=== PATIENT | female | born 1995 | race Caucasian/White ===

== ENCOUNTER 2017-01-12 15:30 | Inpatient (IN) | payer MEDICAID ==
[2017-01-12] MEDS ORDERED: Butorphanol 1 MG/ML SDV ONE (15:45)
[2017-01-12] MEDS: Butorphanol 1 MG/ML SDV IVPUSH PRN ×2 (15:51→17:59)
[2017-01-12] MEDS: Lactated Ringers 1,000 ML IV SCH ×6 (15:51→23:32)
[2017-01-12] MEDS ORDERED: Sodium Chloride 0.9% 2.5 ML Syringe FLUSH PRN (16:18)
[2017-01-12] MEDS ORDERED: Sodium Chloride 0.9% 10 ML Syringe FLUSH PRN (16:18)
[2017-01-12] MEDS ORDERED: Misoprostol 200 MCG Tab PO PRN (16:22)
[2017-01-12] MEDS ORDERED: Lidocaine 1% 50 ML MDV INJECT PRN (16:22)
[2017-01-12] MEDS ORDERED: Water For Irrigation,Sterile 1,000 ML Container IRR PRN (16:22)
[2017-01-12] MEDS ORDERED: Methylergonovine 0.2 MG/1 ML Amp IM PRN (16:22)
[2017-01-12] MEDS ORDERED: Ampicillin 2 GM in Sodium Chloride 0.9% 100 ML IV ONE (16:22)
[2017-01-12] MEDS ORDERED: Nalbuphine 10 MG/1 ML Vial IVPUSH PRN (16:22)
[2017-01-12] MEDS ORDERED: Carboprost Tromethamine 250 MCG/1 ML Amp IM PRN (16:22)
[2017-01-12] MEDS ORDERED: Oxytocin/Lactated Ringers 30 UNIT/500 ML BAG IV SCH (16:30)
[2017-01-12] MEDS ORDERED: fentaNYL 100 MCG/2 ML SDV ONE (20:00)
[2017-01-12] MEDS ORDERED: Ropivacaine HCl/PF 100 ML ONE (20:00)
--- NOTE | 2017-01-12 20:42 | PCM.PREANE ---
Preanesthetic Assessment - Anesthesia/Transfusion/Family Hx Anesthesia History: Prior Anesthesia Without Reaction (SAB for ) Family History of Anesthesia Reaction: Other (see below) (Mother has PONV) Transfusion History: No Prior Transfusion(s) Intubation History: Unknown - Review of Systems General: No Symptoms Pulmonary: No Symptoms Cardiovascular: No Symptoms Gastrointestinal: No symptoms Neurological: No Symptoms Other: Reports: Anxiety - Physical Assessment NPO Status Date: 01/12/17 NPO Status Time: 20:39 (sips/chips) Height: 5 ft 4 in Weight: 196 lb ASA Class: 2 Mental Status: Alert & Oriented x3 Airway Class: Mallampati = 2 Dentition: Reports: Normal Dentition Thyro-Mental Finger Breadths: 3 Mouth Opening Finger Breadths: 3 ROM/Head Extension: Full Lungs: Clear to auscultation, Normal respiratory effort Cardiovascular: Regular Rate, Regular Rhythm - Lab Values: Laboratory Last Values WBC 13.11 K/uL (4.0-11.0) H 01/12/17 16:36 RBC 4.18 M/uL (4.30-5.90) L 01/12/17 16:36 Hgb 13.2 g/dL (12.0-16.0) 01/12/17 16:36 Hct 38.4 % (36.0-46.0) 01/12/17 16:36 MCV 91.9 fL (80.0-98.0) 01/12/17 16:36 MCH 31.6 pg (27.0-32.0) 01/12/17 16:36 MCHC 34.4 g/dL (31.0-37.0) 01/12/17 16:36 RDW Std Deviation 48.0 fl (28.0-62.0) 01/12/17 16:36 RDW Coeff of Sanjay 14 % (11.0-15.0) 01/12/17 16:36 Plt Count 182 K/uL (150-400) 01/12/17 16:36 MPV 10.10 fL (7.40-12.00) 01/12/17 16:36 Nucleated RBC % 0.0 /100WBC 01/12/17 16:36 Nucleated RBCs # 0 K/uL 01/12/17 16:36 Blood Type O POSITIVE 01/12/17 16:36 Antibody Screen NEGATIVE 01/12/17 16:36 - Allergies Allergies/Adverse Reactions: Allergies Allergy/AdvReac Type Severity Reaction Status Date / Time hydrocortisone Allergy Rash Verified 01/12/17 11:14 - Blood Blood Available: No Product(s) Available: None - Anesthesia Plan Free Text/Narrative:: Labor Epidural and in house for - Acknowledgements Anesthesia Type Planned: Epidural Pt an Appropriate Candidate for the Planned Anesthesia: Yes Alternatives and Risks of Anesthesia Discussed w Pt/Guardian: Yes Pt/Guardian Understands and Agrees with Anesthesia Plan: Yes PreAnesthesia Questionnaire [employer] History: Reports: , Other (See Below) (First d/t herpes outbreak) Psychiatric History: Reports: Anxiety, Depression - Infectious Disease History Infectious Disease History: Reports: Herpes - Past Surgical History Female Surgical History: Reports: Section - HOME MEDS Home Medications: Home Meds Ascorbate Calcium [Vitamin C] 1 tab PO DAILY 01/12/17 [History] Iron Tab 1 tab PO DAILY 01/12/17 [History] Vit W-Ca,Fe,FA(<1 mg) [ Vitamins] 1 tab PO DAILY 01/12/17 [ History] buPROPion [Wellbutrin XL] 150 mg PO DAILY 01/12/17 [History] valACYclovir HCl [Valtrex] 1 tab PO BID 01/12/17 [History] - CURRENT (IN HOUSE) MEDS Current Meds: Current Medications Butorphanol Tartrate (Stadol) 1 mg IVPUSH Q1H PRN PRN Reason: Pain Last Admin: 01/12/17 17:59 Dose: 1 mg Carboprost Tromethamine (Hemabate Ds) 250 mcg IM ASDIRECTED PRN PRN Reason: Post Hemorrhage Lactated Ringer's (Ringers, Lactated) 1,000 mls @ 500 mls/hr IV .BOLUS [facility] Last Infusion: 01/12/17 16:51 Dose: Infused Lactated Ringer's (Ringers, Lactated) 1,000 mls @ 150 mls/hr IV ASDIRECTED RODOLFO Last Admin: 01/12/17 20:13 Dose: 999 mls/hr Ampicillin Sodium 1 gm/ Sodium (Chloride) 50 mls @ 100 mls/hr IV Q4H RODOLFO Lidocaine HCl (Xylocaine 1%) 50 ml INJECT .ONCE PRN PRN Reason: Laceration repair Methylergonovine Maleate (Methergine) 0.2 mg IM ASDIRECTED PRN PRN Reason: Post Hemorrhage Misoprostol (Cytotec) 200 mcg PO .ONCE PRN PRN Reason: Post Hemorrhage Sodium Chloride (Saline Flush) 10 ml FLUSH ASDIRECTED PRN PRN Reason: Keep Vein Open Sodium Chloride (Saline Flush) 2.5 ml FLUSH ASDIRECTED PRN PRN Reason: Keep Vein Open Sterile Water (Sterile Water For Irrigation) 1,000 ml IRR ASDIRECTED PRN PRN Reason: delivery Discontinued Medications Butorphanol Tartrate (Stadol) Confirm Administered Dose 1 mg .ROUTE .STK-MED ONE Stop: 01/12/17 15:46 Fentanyl (Sublimaze) Confirm Administered Dose 100 mcg .ROUTE .STK-MED ONE Stop: 01/12/17 20:01 Ampicillin Sodium 2 gm/ Sodium (Chloride) 100 mls @ 200 mls/hr IV ONETIME ONE Stop: 01/12/17 16:51 Last Admin: 01/12/17 16:50 Dose: 200 mls/hr Oxytocin/Lactated Ringer's (Pitocin In Lr 30 Units/500 Ml) 30 unit in 500 mls @ 250 mls/hr IV TITRATE RODOLFO PRN Reason: 250 MUNITS/MIN Stop: 01/12/17 18:29 Ropivacaine (Naropin 0.2%) Confirm Administered Dose 100 mls @ as directed .ROUTE .STK-MED ONE Stop: 01/12/17 20:01 Nalbuphine HCl (Nubain) 10 mg IVPUSH Q1H PRN PRN Reason: Pain (severe 7-10) Stop: 01/12/17 18:23
[2017-01-12] MEDS: Ampicillin 1 GM in Sodium Chloride 0.9% 50 ML IV SCH (21:06)
[2017-01-13] MEDS: Ampicillin 1 GM in Sodium Chloride 0.9% 50 ML IV SCH (00:48)
[2017-01-13] MEDS ORDERED: fentaNYL 100 MCG/2 ML SDV ONE ×2 (02:56→03:24)
[2017-01-13] MEDS ORDERED: Bupivacaine 0.5% 10 ML SDV ONE (02:57)
[2017-01-13] MEDS ORDERED: ceFAZolin 2 GM in Premix Bag 1 BAG IV ONE (03:00)
[2017-01-13] MEDS ORDERED: Citric Acid/Sodium Citrate Solution 30 ML Cup PO SCH (03:00)
[2017-01-13] MEDS ORDERED: Sodium Chloride 0.9% 2.5 ML Syringe FLUSH PRN (03:00)
[2017-01-13] MEDS ORDERED: Sodium Chloride 0.9% 10 ML Syringe FLUSH PRN (03:00)
[2017-01-13] MEDS: Lactated Ringers 1,000 ML IV SCH (03:03)
[2017-01-13] MEDS ORDERED: Oxytocin 10 Units/1 ML SDV ONE ×2 (03:13→04:12)
[2017-01-13] MEDS ORDERED: Propofol 200 MG/20 ML SDV ONE (03:33)
[2017-01-13] MEDS ORDERED: Morphine PF 10 MG/10 ML SDV ONE (03:41)
[2017-01-13] MEDS ORDERED: Midazolam 1 MG/ML 2 ML SDV ONE (03:47)
[2017-01-13] MEDS ORDERED: Acetaminophen/oxyCODONE 325-5 MG Tab PO PRN (03:58)
[2017-01-13] MEDS ORDERED: Nalbuphine 10 MG/1 ML Vial IVPUSH PRN (03:59)
[2017-01-13] MEDS ORDERED: Naloxone 0.4 MG/ML Syringe IVPUSH PRN (03:59)
[2017-01-13] MEDS ORDERED: Meperidine PF 25 MG/ML Syringe ONE (04:02)
[2017-01-13] MEDS ORDERED: Ondansetron 4 MG/2 ML SDV ONE (04:04)
[2017-01-13] MEDS ORDERED: Octyl 2-Cyanoacrylate 1 Tube ONE ×2 (04:09→04:14)
[2017-01-13] MEDS ORDERED: Lanolin 100% Cream 7 GM Tube TOP PRN (04:19)
[2017-01-13] MEDS ORDERED: Ibuprofen 800 MG Tab PO PRN (04:19)
[2017-01-13] MEDS ORDERED: diphenhydrAMINE 50 MG/ML SDV IVPUSH PRN (04:19)
[2017-01-13] MEDS ORDERED: Simethicone 80 MG Tab.Chew PO PRN (04:19)
[2017-01-13] MEDS ORDERED: Bisacodyl 10 MG Supp RECTAL PRN (04:19)
[2017-01-13] MEDS ORDERED: Ondansetron 4 MG/2 ML SDV IVPUSH PRN (04:19)
[2017-01-13] MEDS ORDERED: Lactated Ringers 1,000 ML IV SCH (04:30)
--- NOTE | 2017-01-13 04:31 | PCM.OPNOTE ---
- General Post-Op/Procedure Note Date of Surgery/Procedure: 01/13/17 Operative Procedure(s): Repeat LTCS. Adhesiolysis Findings: Viable male APGARs 8, 9 weight 3250 gm. Intact placenta with 3 V cord. Dense anterior abominal wall/uterine adhesions. No IUD found with exploration of uterus/abdomen/pelvis Pre Op Diagnosis: 40/1 week IUP. TOLAC. Arrest of dilation Post-Op Diagnosis: Same Anesthesia Technique: Epidural Primary Surgeon: Izabela Roy Fluid Replacement, Intraop: 2,000 EBL in mLs: 500 Condition: Good Free Text/Narrative:: Dictation [id number]
[2017-01-13] MEDS: Ketorolac 30 MG/ML SDV IVPUSH SCH ×4 (04:42→22:29)
--- NOTE | 2017-01-13 04:53 | PCM.POSTAN ---
POST ANESTHESIA ASSESSMENT - MENTAL STATUS Mental Status: alert, oriented - VITAL SIGNS Pulse Rate: 89 SaO2: 99 Resp Rate: 12 Blood Pressure: 124/64 - RESPIRATORY Respiratory Status: respiratory rate WNL, airway patent, O2 saturation stable - CARDIOVASCULAR CV Status: pulse rate WNL, blood pressure stable - GASTROINTESTINAL GI Status: no symptoms - PAIN Pain Score: 0 - POST OP HYDRATION Hydration Status: adequate & stable - OBSERVATIONS Free Text/Narrative:: Pt doing well post . Anxiety has relieved now that pt is out of the OR. VSS. No nausea or pain at this time.
--- NOTE | 2017-01-13 05:54 | OR ---
SURGEON: Izabela Roy M.D. DATE OF PROCEDURE: 01/13/2017 PREOPERATIVE DIAGNOSES: 1. A 40 and 1 week intrauterine . 2. Previous low transverse section, desires trial of labor after . 3. Arrest of dilation. POSTOPERATIVE DIAGNOSES: 1. A 40 and 1 week intrauterine . 2. Previous low transverse section, desires trial of labor after . 3. Arrest of dilation. PROCEDURES: 1. Repeat low transverse section. 2. Adhesiolysis. ANESTHESIA: Epidural. ESTIMATED BLOOD LOSS: 500 mL. FLUIDS: 2000 mL crystalloid. COMPLICATIONS: None known. FINDINGS: Viable male, score 8 at 1 minute, 9 at 5 minutes. Weight of 3250 g. Intact placenta 3-vessel cord. Dense anterior uterine abdominal wall adhesions. No IUD was found in the uterine cavity, abdominal or pelvic region with manual exploration. DISPOSITION: The patient to PACU, stable. to nursery. PROCEDURE IN DETAIL: The patient is a 21-year-old G2, P1, at 40 and 1 week gestational age, who presented on the evening of 01/12/2017 with regular contractions. She was found to be in labor and had changed cervix from 2 cm to 4 cm, was admitted, routine labs were drawn. Initiated group B beta strep prophylaxis. Continued to labor throughout the evening hours, progressed to 6 cm dilatation, underwent regional anesthesia in the form of epidural, became more comfortable, underwent amniotomy. Thereafter, the patient really made no further cervical change, so approximately at 02:30 a.m., the patient was having recurrent variable decelerations and has not changed her cervix since shortly after 08:00 p.m. Therefore, options were discussed with her and she would like to proceed with repeat . Risks of the procedure have been discussed with her including infection, bleeding, possible trauma surrounding bowel, bladder, ureter, in case of excessive blood loss, need for blood product transfusion, rare lifesaving circumstances, need for hysterectomy, risk of anesthesia, risk for thromboembolic event. Proper consent obtained. The patient was taken to the operating room, where she underwent re-bolus of her epidural. She was placed in dorsal supine position with leftward tilt. SCDs to lower extremities. [place] to gravity. She was prepped and draped in the usual sterile fashion, received Ancef 2 g prophylactically. Time-out was performed. Anesthesia was found to be adequate. Previous Pfannenstiel scar was now excised. Subcutaneous tissue was incised down to the level of the rectus fascia in the midline. This was incised, lateralized sharply and bluntly on either side. The superior aspect of the fascia was tented up, dissected sharply and bluntly away from underlying muscles from the inferior aspect of the fascia. Rectus muscles were in the midline. The peritoneum was attempted to be entered; however, with entry, could sense significant bowel adhesions. It was very difficult to palpate normal pelvic anatomy given the amount of adhesions that were present, therefore, was able to further develop entry into the peritoneum inferiorly and this was lateralized, was able to place retractors in order to at least visualize the lower uterine segment. The bladder flap was created sharply and bluntly. Bladder was mobilized away from the lower uterine segment. Low transverse uterine hysterotomy was performed and uterine cavity was entered. Hysterotomy was lateralized bluntly. The 's head was flexed and delivered from the pelvis. The head was delivered followed by anterior shoulder, posterior shoulder, and remainder of body. There was a nuchal cord x2 present that was reduced manually. The 's oropharynx and nares bulb suctioned. Cord clamped x2 and cut. Infant was handed off to attending physician, Dr. Florez. Cord arterial, cord venous, cord blood samples were obtained. The placenta was now delivered. Uterine cavity was cleared of all clot and debris and was manually evaluated and no IUD was found. The hysterotomy was now repaired using 0 Vicryl in continuous running locked fashion followed by a re-imbricating layer. Area of bleeding in the midline was replicated with [id number] suture. Hemostasis thereafter evident. I was able to more closely inspect the pelvis at this juncture and it was clear that the reason for the inability to properly visualize the field or pelvic anatomy was there is significantly dense anterior abdominal wall adhesion. This was gently lysed and oversewn with 3-0 Vicryl on a V20 needle. At this point, I was able to do much more easily mobilized the uterus and visualize the posterior aspect of the uterus. No defects or hematomas were found to be forming. The region was well irrigated, suction dried. The uterus was firm. Tubes and ovaries appeared normal. At this point, I inspected the pelvis and the upper abdomen. No IUD was easily palpated or visualized. The uterus was returned to the abdominal cavity. Colonic gutters were cleared of all clot and debris, well irrigated and suction dried. Hysterotomy was again inspected and found to be hemostatic. The rectus muscles and peritoneum were now closed using 0 Vicryl in inverted mattress suture technique. Anterior aspect of the muscle and posterior aspect fascia was closely inspected. Any areas of oozing were cauterized. The rectus fascia was now replicated using 0 Vicryl in continuous running locked fashion. The subcutaneous tissue was well irrigated, suction dried. Any areas of oozing were cauterized. The skin edges were reapproximated with a 3-0 Vicryl in a Edson needle in a subcuticular fashion followed by Dermabond. The uterus remained firm. Sponge, instrument, and needle count was correct x2. The patient has tolerated the procedure well overall. She will go to PACU in stable condition, to nursery. BENNY / DORIS /[id number]
[2017-01-13] MEDS: Docusate Sodium 100 MG Cap PO SCH ×2 (08:38→21:56)
--- NOTE | 2017-01-13 13:02 | PCM.PNPP ---
- General Info Date of Service: 01/13/17 Functional Status: Reports: pain controlled, tolerating diet. Denies: urinating (catheter in place) - Review of Systems General: Reports: No Symptoms HEENT: Reports: no symptoms Pulmonary: Reports: no symptoms Cardiovascular: Reports: No Symptoms Gastrointestinal: Reports: No symptoms Genitourinary: Reports: no symptoms Musculoskeletal: Reports: no symptoms Skin: Reports: no symptoms Neurological: Reports: No Symptoms Psychiatric: Reports: no symptoms - Patient Data Vital Signs - most recent: Last Vital Signs Temp 36.7 C 01/13/17 12:00 Pulse 98 01/13/17 12:00 Resp 20 01/13/17 12:00 BP 129/67 01/13/17 12:00 Pulse Ox 97 01/13/17 12:00 Weight - most recent: 88.904 kg I&O - last 24 hours: Intake & Output 01/12/17 01/13/17 01/13/17 22:59 06:59 14:59 Intake Total 4500 Output Total 2350 Balance 2150 Lab Results - last 24 hrs: Laboratory Results - last 24 hr 01/12/17 01/12/17 Range/Units 16:36 16:36 WBC 13.11 H (4.0-11.0) K/uL RBC 4.18 L (4.30-5.90) M/uL Hgb 13.2 (12.0-16.0) g/dL Hct 38.4 (36.0-46.0) % MCV 91.9 (80.0-98.0) fL MCH 31.6 (27.0-32.0) pg MCHC 34.4 (31.0-37.0) g/dL RDW Std Deviation 48.0 (28.0-62.0) fl RDW Coeff of Sanjay 14 (11.0-15.0) % Plt Count 182 (150-400) K/uL MPV 10.10 (7.40-12.00) fL Nucleated RBC % 0.0 /100WBC Nucleated RBCs # 0 K/uL Blood Type O POSITIVE Antibody Screen NEGATIVE Med Orders - Current: Current Medications Bisacodyl (Dulcolax) 10 mg RECTAL .ONCE PRN PRN Reason: Constipation Carboprost Tromethamine (Hemabate Ds) 250 mcg IM ASDIRECTED PRN PRN Reason: Post Hemorrhage Citric Acid/Sodium Citrate (Bicitra Solution) 30 ml PO .ONCE [facility] Diphenhydramine HCl (Benadryl) 25 mg IVPUSH Q6H PRN PRN Reason: Itching or Nausea Docusate Sodium (Colace) 100 mg PO BID [facility] Last Admin: 01/13/17 08:38 Dose: 100 mg Emollient Ointment (Lansinoh Hpa) 0 gm TOP ASDIRECTED PRN PRN Reason: Sore Nipples Lactated Ringer's (Ringers, Lactated) 1,000 mls @ 500 mls/hr IV .BOLUS [facility] Last Admin: 01/13/17 03:03 Dose: 1,000 mls/hr Lactated Ringer's (Ringers, Lactated) 1,000 mls @ 150 mls/hr IV ASDIRECTED [facility] Last Admin: 01/12/17 20:13 Dose: 999 mls/hr Lactated Ringer's (Ringers, Lactated) 1,000 mls @ 125 mls/hr IV ASDIRECTED [facility] Last Admin: 01/13/17 08:37 Dose: 125 mls/hr Ibuprofen (Motrin) 800 mg PO Q8H PRN PRN Reason: mild pain or fever Ketorolac Tromethamine (Toradol) 30 mg IVPUSH Q6H [facility] Stop: 01/14/17 04:31 Last Admin: 01/13/17 10:14 Dose: 30 mg Methylergonovine Maleate (Methergine) 0.2 mg IM ASDIRECTED PRN PRN Reason: Post Hemorrhage Nalbuphine HCl (Nubain) 2.5 mg IVPUSH Q3H PRN PRN Reason: Pruritis Stop: 01/14/17 03:59 Last Admin: 01/13/17 10:26 Dose: 2.5 mg Naloxone HCl (Narcan) 0.1 mg IVPUSH ONETIME PRN PRN Reason: RR<6 WITH STIMULATION Stop: 01/14/17 04:00 Ondansetron HCl (Zofran) 4 mg IVPUSH Q4H PRN PRN Reason: Nausea/Vomiting Oxycodone/Acetaminophen (Percocet 325-5 Mg) 1 tab PO .Q4HRS PRN PRN Reason: Breakthrough Pain Stop: 01/14/17 04:00 Oxycodone/Acetaminophen (Percocet 325-5 Mg) 1 tab PO Q4H PRN PRN Reason: Pain (moderate 4-6) Oxycodone/Acetaminophen (Percocet 325-5 Mg) 2 tab PO Q4H PRN PRN Reason: Pain (moderate 4-6) Simethicone (Simethicone) 80 mg PO Q4H PRN PRN Reason: Gas Sodium Chloride (Saline Flush) 2.5 ml FLUSH ASDIRECTED PRN PRN Reason: Keep Vein Open Discontinued Medications Bupivacaine HCl (Sensorcaine-Mpf 0.5%) Confirm Administered Dose 20 ml .ROUTE .STK-MED ONE Stop: 01/13/17 02:58 Last Admin: 01/13/17 09:23 Dose: Not Given Butorphanol Tartrate (Stadol) Confirm Administered Dose 1 mg .ROUTE .STK-MED ONE Stop: 01/12/17 15:46 Last Admin: 01/13/17 09:22 Dose: Not Given Butorphanol Tartrate (Stadol) 1 mg IVPUSH Q1H PRN PRN Reason: Pain Last Admin: 01/12/17 17:59 Dose: 1 mg Fentanyl (Sublimaze) Confirm Administered Dose 100 mcg .ROUTE .STK-MED ONE Stop: 01/12/17 20:01 Last Admin: 01/13/17 09:23 Dose: Not Given Fentanyl (Sublimaze) Confirm Administered Dose 100 mcg .ROUTE .STK-MED ONE Stop: 01/13/17 02:57 Last Admin: 01/13/17 09:23 Dose: Not Given Fentanyl (Sublimaze) Confirm Administered Dose 100 mcg .ROUTE .STK-MED ONE Stop: 01/13/17 03:25 Ampicillin Sodium 2 gm/ Sodium (Chloride) 100 mls @ 200 mls/hr IV ONETIME ONE Stop: 01/12/17 16:51 Last Admin: 01/12/17 16:50 Dose: 200 mls/hr Oxytocin/Lactated Ringer's (Pitocin In Lr 30 Units/500 Ml) 30 unit in 500 mls @ 250 mls/hr IV TITRATE RODOLFO PRN Reason: 250 MUNITS/MIN Stop: 01/12/17 18:29 Last Admin: 01/13/17 09:23 Dose: Not Given Ampicillin Sodium 1 gm/ Sodium (Chloride) 50 mls @ 100 mls/hr IV Q4H RODOLFO Last Admin: 01/13/17 00:48 Dose: 100 mls/hr Ropivacaine (Naropin 0.2%) Confirm Administered Dose 100 mls @ as directed .ROUTE .STK-MED ONE Stop: 01/12/17 20:01 Last Admin: 01/13/17 09:23 Dose: Not Given Cefazolin Sodium/Dextrose 2 gm (/ Premix) 50 mls @ 100 mls/hr IV ONETIME ONE Stop: 01/13/17 03:29 Last Admin: 01/13/17 09:23 Dose: Not Given Ibuprofen (Motrin) 800 mg PO Q8H PRN PRN Reason: mild pain or fever Lidocaine HCl (Xylocaine 1%) 50 ml INJECT .ONCE PRN PRN Reason: Laceration repair Meperidine HCl (Demerol) Confirm Administered Dose 25 mg .ROUTE .STK-MED ONE Stop: 01/13/17 04:03 Midazolam HCl (Versed 1 Mg/Ml) Confirm Administered Dose 2 mg .ROUTE .STK-MED ONE Stop: 01/13/17 03:48 Misoprostol (Cytotec) 200 mcg PO .ONCE PRN PRN Reason: Post Hemorrhage Morphine Sulfate (Duramorph Pf) Confirm Administered Dose 10 mg .ROUTE .STK-MED ONE Stop: 01/13/17 03:42 Nalbuphine HCl (Nubain) 10 mg IVPUSH Q1H PRN PRN Reason: Pain (severe 7-10) Stop: 01/12/17 18:23 Octyl Cyanoacrylate (Dermabond Advance) Confirm Administered Dose 1 applic .ROUTE .STK-MED ONE Stop: 01/13/17 04:10 Octyl Cyanoacrylate (Dermabond Advance) Confirm Administered Dose 1 applic .ROUTE .STK-MED ONE Stop: 01/13/17 04:15 Ondansetron HCl (Zofran) Confirm Administered Dose 4 mg .ROUTE .STK-MED ONE Stop: 01/13/17 04:05 Oxytocin (Pitocin) Confirm Administered Dose 20 unit .ROUTE .STK-MED ONE Stop: 01/13/17 03:14 Oxytocin (Pitocin) Confirm Administered Dose 20 unit .ROUTE .STK-MED ONE Stop: 01/13/17 04:13 Propofol (Diprivan 20 Ml) Confirm Administered Dose 200 mg .ROUTE .M&D ANTIQUES & CONSIGNMENT-MED ONE Stop: 01/13/17 03:34 Sodium Chloride (Saline Flush) 10 ml FLUSH ASDIRECTED PRN PRN Reason: Keep Vein Open Sodium Chloride (Saline Flush) 10 ml FLUSH ASDIRECTED PRN PRN Reason: Keep Vein Open Sodium Chloride (Saline Flush) 2.5 ml FLUSH ASDIRECTED PRN PRN Reason: Keep Vein Open Sterile Water (Sterile Water For Irrigation) 1,000 ml IRR ASDIRECTED PRN PRN Reason: delivery - Interaction Disposition, : [place] in Room with Family Infant Interaction: Holding Infant Infant Feeding: Attempted ; Nursed Fair/Poor - Recovery Exam Fundal Tone: Firm Fundal Level: At Umbilicus Fundal Placement: Midline Lochia Amount: Scant Lochia Color: Rubra/Red Perineum Description: Intact, Minimal Bruising/Swelling Bladder Status: Indwelling Catheter in Place Urinary Elimination: Indwelling Catheter - Exam General: alert, oriented HEENT: Pupils equal Neck: supple Lungs: Normal respiratory effort Abdomen: soft, no tenderness, no distension Extremities: no edema Skin: warm, dry, intact Wound/Incisions: dressing dry and intact Neurological: no new focal deficit Psy/Mental Status: alert, normal affect, normal mood - Problem List & Annotations (1) Arrest of descent, delivered, current hospitalization SNOMED Code(s): 38491142 Code(s): O62.1 - SECONDARY UTERINE INERTIA Status: Acute Current Visit: Yes (2) delivery delivered SNOMED Code(s): 465082424 Code(s): O82 - ENCOUNTER FOR DELIVERY WITHOUT INDICATION Status: Acute Current Visit: Yes - Problem List Review Problem List Initiated/Reviewed/Updated: Yes - My Orders Last 24 Hours: My Active Orders 01/12/17 16:18 Vital Signs [RC] PER UNIT ROUTINE Sodium Chloride 0.9% [Saline Flush] 2.5 ml FLUSH ASDIRECTED PRN Peripheral IV Insertion Adult [OM.PC] Urgent Resuscitation Status Routine 01/12/17 16:22 May Shower [RC] ASDIRECTED Notify Provider [RC] PRN Up ad Thuy [RC] ASDIRECTED Vaginal Exam [RC] PRN Vital Signs [RC] PER UNIT ROUTINE Carboprost Tromethamine [Hemabate DS] 250 mcg IM ASDIRECTED PRN Methylergonovine [Methergine] 0.2 mg IM ASDIRECTED PRN 01/12/17 16:30 Lactated Ringers [Ringers, Lactated] 1,000 ml IV .BOLUS Lactated Ringers [Ringers, Lactated] 1,000 ml IV ASDIRECTED - Assessment Assessment:: POD#0 after arrest of dilatation , stable, minimal lochia, pain well controlled. - Plan Plan:: Continue postop care, may ambulate later today.
--- NOTE | 2017-01-13 20:14 | PCM48HPAN ---
Post Anesthesia Note - EVALUATION WITHIN 48HRS OF ANESTHETIC Vital Signs in Normal Range: Yes Patient Participated in Evaluation: Yes Respiratory Function Stable: Yes Airway Patent: Yes Cardiovascular Function Stable: Yes Hydration Status Stable: Yes Pain Control Satisfactory: Yes Nausea and Vomiting Control Satisfactory: Yes Mental Status Recovered: Yes
[2017-01-14] MEDS: Ketorolac 30 MG/ML SDV IVPUSH SCH (04:25)
[2017-01-14] MEDS: Acetaminophen/oxyCODONE 325-5 MG Tab PO PRN ×5 (04:43→22:13)
[2017-01-14] MEDS: Docusate Sodium 100 MG Cap PO SCH ×2 (08:44→20:33)
--- NOTE | 2017-01-14 08:54 | PCM.PNPP ---
- General Info Functional Status: Reports: pain controlled, tolerating diet, ambulating - Review of Systems General: Reports: No Symptoms HEENT: Reports: no symptoms Pulmonary: Reports: no symptoms Cardiovascular: Reports: No Symptoms Gastrointestinal: Reports: No symptoms Genitourinary: Reports: no symptoms Musculoskeletal: Reports: no symptoms Skin: Reports: no symptoms Neurological: Reports: No Symptoms Psychiatric: Reports: no symptoms - Patient Data Vital Signs - most recent: Last Vital Signs Temp 37.0 C 01/14/17 00:00 Pulse 76 01/14/17 04:00 Resp 18 01/14/17 04:00 BP 125/79 01/14/17 00:00 Pulse Ox 97 01/14/17 04:00 Weight - most recent: 88.904 kg I&O - last 24 hours: Intake & Output 01/13/17 01/14/17 01/14/17 22:59 06:59 14:59 Intake Total 2634 Output Total 325 1050 Balance 2309 -1050 Lab Results - last 24 hrs: Laboratory Results - last 24 hr 01/14/17 Range/Units 05:18 Hgb 10.2 L (12.0-16.0) g/dL Hct 30.1 L (36.0-46.0) % Med Orders - Current: Current Medications Bisacodyl (Dulcolax) 10 mg RECTAL .ONCE PRN PRN Reason: Constipation Carboprost Tromethamine (Hemabate Ds) 250 mcg IM ASDIRECTED PRN PRN Reason: Post Hemorrhage Citric Acid/Sodium Citrate (Bicitra Solution) 30 ml PO .ONCE RODOLFO Diphenhydramine HCl (Benadryl) 25 mg IVPUSH Q6H PRN PRN Reason: Itching or Nausea Docusate Sodium (Colace) 100 mg PO BID [facility] [place] Last Admin: 01/14/17 08:44 Dose: 100 mg Emollient Ointment (Lansinoh Hpa) 0 gm TOP ASDIRECTED PRN PRN Reason: Sore Nipples Lactated Ringer's (Ringers, Lactated) 1,000 mls @ 500 mls/hr IV .BOLUS [facility] [place] Last Admin: 01/13/17 03:03 Dose: 1,000 mls/hr Lactated Ringer's (Ringers, Lactated) 1,000 mls @ 150 mls/hr IV ASDIRECTED RODOLFO Last Admin: 01/12/17 20:13 Dose: 999 mls/hr Lactated Ringer's (Ringers, Lactated) 1,000 mls @ 125 mls/hr IV ASDIRECTED [facility] Last Admin: 01/13/17 08:37 Dose: 125 mls/hr Ibuprofen (Motrin) 800 mg PO Q8H PRN PRN Reason: mild pain or fever Methylergonovine Maleate (Methergine) 0.2 mg IM ASDIRECTED PRN PRN Reason: Post Hemorrhage Ondansetron HCl (Zofran) 4 mg IVPUSH Q4H PRN PRN Reason: Nausea/Vomiting Oxycodone/Acetaminophen (Percocet 325-5 Mg) 1 tab PO Q4H PRN PRN Reason: Pain (moderate 4-6) Last Admin: 01/14/17 08:44 Dose: 1 tab Oxycodone/Acetaminophen (Percocet 325-5 Mg) 2 tab PO Q4H PRN PRN Reason: Pain (moderate 4-6) Simethicone (Simethicone) 80 mg PO Q4H PRN PRN Reason: Gas Sodium Chloride (Saline Flush) 2.5 ml FLUSH ASDIRECTED PRN PRN Reason: Keep Vein Open Discontinued Medications Bupivacaine HCl (Sensorcaine-Mpf 0.5%) Confirm Administered Dose 20 ml .ROUTE .STK-MED ONE Stop: 01/13/17 02:58 Last Admin: 01/13/17 09:23 Dose: Not Given Butorphanol Tartrate (Stadol) Confirm Administered Dose 1 mg .ROUTE .STK-MED ONE Stop: 01/12/17 15:46 Last Admin: 01/13/17 09:22 Dose: Not Given Butorphanol Tartrate (Stadol) 1 mg IVPUSH Q1H PRN PRN Reason: Pain Last Admin: 01/12/17 17:59 Dose: 1 mg Fentanyl (Sublimaze) Confirm Administered Dose 100 mcg .ROUTE .STK-MED ONE Stop: 01/12/17 20:01 Last Admin: 01/13/17 09:23 Dose: Not Given Fentanyl (Sublimaze) Confirm Administered Dose 100 mcg .ROUTE .STK-MED ONE Stop: 01/13/17 02:57 Last Admin: 01/13/17 09:23 Dose: Not Given Fentanyl (Sublimaze) Confirm Administered Dose 100 mcg .ROUTE .STK-MED ONE Stop: 01/13/17 03:25 Ampicillin Sodium 2 gm/ Sodium (Chloride) 100 mls @ 200 mls/hr IV ONETIME ONE Stop: 01/12/17 16:51 Last Admin: 01/12/17 16:50 Dose: 200 mls/hr Oxytocin/Lactated Ringer's (Pitocin In Lr 30 Units/500 Ml) 30 unit in 500 mls @ 250 mls/hr IV TITRATE RODOLFO PRN Reason: 250 MUNITS/MIN Stop: 01/12/17 18:29 Last Admin: 01/13/17 09:23 Dose: Not Given Ampicillin Sodium 1 gm/ Sodium (Chloride) 50 mls @ 100 mls/hr IV Q4H [facility] Last Admin: 01/13/17 00:48 Dose: 100 mls/hr Ropivacaine (Naropin 0.2%) Confirm Administered Dose 100 mls @ as directed .ROUTE .STK-MED ONE Stop: 01/12/17 20:01 Last Admin: 01/13/17 09:23 Dose: Not Given Cefazolin Sodium/Dextrose 2 gm (/ Premix) 50 mls @ 100 mls/hr IV ONETIME ONE Stop: 01/13/17 03:29 Last Admin: 01/13/17 09:23 Dose: Not Given Ibuprofen (Motrin) 800 mg PO Q8H PRN PRN Reason: mild pain or fever Ketorolac Tromethamine (Toradol) 30 mg IVPUSH Q6H [facility] [place] Stop: 01/14/17 04:31 Last Admin: 01/14/17 04:25 Dose: 30 mg Lidocaine HCl (Xylocaine 1%) 50 ml INJECT .ONCE PRN PRN Reason: Laceration repair Meperidine HCl (Demerol) Confirm Administered Dose 25 mg .ROUTE .STK-MED ONE Stop: 01/13/17 04:03 Midazolam HCl (Versed 1 Mg/Ml) Confirm Administered Dose 2 mg .ROUTE .STK-MED ONE Stop: 01/13/17 03:48 Misoprostol (Cytotec) 200 mcg PO .ONCE PRN PRN Reason: Post Hemorrhage Morphine Sulfate (Duramorph Pf) Confirm Administered Dose 10 mg .ROUTE .STK-MED ONE Stop: 01/13/17 03:42 Nalbuphine HCl (Nubain) 10 mg IVPUSH Q1H PRN PRN Reason: Pain (severe 7-10) Stop: 01/12/17 18:23 Nalbuphine HCl (Nubain) 2.5 mg IVPUSH Q3H PRN PRN Reason: Pruritis Stop: 01/14/17 03:59 Last Admin: 01/13/17 10:26 Dose: 2.5 mg Naloxone HCl (Narcan) 0.1 mg IVPUSH ONETIME PRN PRN Reason: RR<6 WITH STIMULATION Stop: 01/14/17 04:00 Octyl Cyanoacrylate (Dermabond Advance) Confirm Administered Dose 1 applic .ROUTE .STK-MED ONE Stop: 01/13/17 04:10 Octyl Cyanoacrylate (Dermabond Advance) Confirm Administered Dose 1 applic .ROUTE .STK-MED ONE Stop: 01/13/17 04:15 Ondansetron HCl (Zofran) Confirm Administered Dose 4 mg .ROUTE .STK-MED ONE Stop: 01/13/17 04:05 Oxycodone/Acetaminophen (Percocet 325-5 Mg) 1 tab PO .Q4HRS PRN PRN Reason: Breakthrough Pain Stop: 01/14/17 04:00 Last Admin: 01/13/17 23:12 Dose: 1 tab Oxytocin (Pitocin) Confirm Administered Dose 20 unit .ROUTE .STK-MED ONE Stop: 01/13/17 03:14 Oxytocin (Pitocin) Confirm Administered Dose 20 unit .ROUTE .STK-MED ONE Stop: 01/13/17 04:13 Propofol (Diprivan 20 Ml) Confirm Administered Dose 200 mg .ROUTE .STK-MED ONE Stop: 01/13/17 03:34 Sodium Chloride (Saline Flush) 10 ml FLUSH ASDIRECTED PRN PRN Reason: Keep Vein Open Sodium Chloride (Saline Flush) 10 ml FLUSH ASDIRECTED PRN PRN Reason: Keep Vein Open Sodium Chloride (Saline Flush) 2.5 ml FLUSH ASDIRECTED PRN PRN Reason: Keep Vein Open Sterile Water (Sterile Water For Irrigation) 1,000 ml IRR ASDIRECTED PRN PRN Reason: delivery - Interaction Disposition, : [place] in Room with Family Interaction: Holding Infant Infant Feeding: Attempted ; Nursed Fair/Poor - Recovery Exam Fundal Tone: Firm Fundal Level: 1 Fingerbreadths Below Umbilicus Fundal Placement: Midline Lochia Amount: Scant, Small Lochia Color: Rubra/Red Perineum Description: Intact, Minimal Bruising/Swelling Bladder Status: Indwelling Catheter in Place Urinary Elimination: Indwelling Catheter - Exam General: alert, oriented HEENT: Pupils equal Neck: supple Lungs: Clear to auscultation, Normal respiratory effort Cardiovascular: Regular Rate, Regular Rhythm Abdomen: bowel sounds present, soft, no tenderness, no distension Extremities: no edema Skin: warm, dry, intact Wound/Incisions: dressing dry and intact Neurological: no new focal deficit Psy/Mental Status: alert, normal affect, normal mood - Problem List & Annotations (1) Arrest of descent, delivered, current hospitalization SNOMED Code(s): 76811203 Code(s): O62.1 - SECONDARY UTERINE INERTIA Status: Acute Current Visit: Yes (2) delivery delivered SNOMED Code(s): 886077539 Code(s): O82 - ENCOUNTER FOR DELIVERY WITHOUT INDICATION Status: Acute Current Visit: Yes - Problem List Review Problem List Initiated/Reviewed/Updated: Yes - Assessment Assessment:: POD#1 after arrest of dilatation , stable, minimal lochia, pain well controlled. - Plan Plan:: Dressing off, ambulate, shower continue postop care
[2017-01-14] MEDS: Ibuprofen 800 MG Tab PO PRN ×2 (11:58→20:33)
[2017-01-15] MEDS: Acetaminophen/oxyCODONE 325-5 MG Tab PO PRN ×4 (02:06→22:49)
[2017-01-15] MEDS: Ibuprofen 800 MG Tab PO PRN ×2 (06:06→16:27)
--- NOTE | 2017-01-15 08:09 | PCM.PNPP ---
- General Info Date of Service: 01/15/17 Functional Status: Reports: pain controlled, tolerating diet, ambulating, urinating - Review of Systems General: Reports: No Symptoms HEENT: Reports: no symptoms Pulmonary: Reports: no symptoms Cardiovascular: Reports: No Symptoms Gastrointestinal: Reports: No symptoms Genitourinary: Reports: no symptoms Musculoskeletal: Reports: no symptoms Skin: Reports: no symptoms Neurological: Reports: No Symptoms Psychiatric: Reports: no symptoms - Patient Data Vital Signs - most recent: Last Vital Signs Temp 36.4 C 01/15/17 04:00 Pulse 88 01/15/17 04:00 Resp 16 01/15/17 04:00 BP 129/80 01/15/17 04:00 Pulse Ox 94 L 01/15/17 04:00 Weight - most recent: 88.904 kg Med Orders - Current: Current Medications Bisacodyl (Dulcolax) 10 mg RECTAL .ONCE PRN PRN Reason: Constipation Carboprost Tromethamine (Hemabate Ds) 250 mcg IM ASDIRECTED PRN PRN Reason: Post Hemorrhage Citric Acid/Sodium Citrate (Bicitra Solution) 30 ml PO .ONCE RODOLFO Diphenhydramine HCl (Benadryl) 25 mg IVPUSH Q6H PRN PRN Reason: Itching or Nausea Docusate Sodium (Colace) 100 mg PO BID [facility] Last Admin: 01/14/17 20:33 Dose: 100 mg Emollient Ointment (Lansinoh Hpa) 0 gm TOP ASDIRECTED PRN PRN Reason: Sore Nipples Lactated Ringer's (Ringers, Lactated) 1,000 mls @ 500 mls/hr IV .BOLUS [facility] Last Admin: 01/13/17 03:03 Dose: 1,000 mls/hr Lactated Ringer's (Ringers, Lactated) 1,000 mls @ 150 mls/hr IV ASDIRECTED [facility] Last Admin: 01/12/17 20:13 Dose: 999 mls/hr Lactated Ringer's (Ringers, Lactated) 1,000 mls @ 125 mls/hr IV ASDIRECTED [facility] Last Admin: 01/13/17 08:37 Dose: 125 mls/hr Ibuprofen (Motrin) 800 mg PO Q8H PRN PRN Reason: mild pain or fever Last Admin: 01/15/17 06:06 Dose: 800 mg Methylergonovine Maleate (Methergine) 0.2 mg IM ASDIRECTED PRN PRN Reason: Post Hemorrhage Ondansetron HCl (Zofran) 4 mg IVPUSH Q4H PRN PRN Reason: Nausea/Vomiting Oxycodone/Acetaminophen (Percocet 325-5 Mg) 1 tab PO Q4H PRN PRN Reason: Pain (moderate 4-6) Last Admin: 01/14/17 08:44 Dose: 1 tab Oxycodone/Acetaminophen (Percocet 325-5 Mg) 2 tab PO Q4H PRN PRN Reason: Pain (moderate 4-6) Last Admin: 01/15/17 02:06 Dose: 2 tab Simethicone (Simethicone) 80 mg PO Q4H PRN PRN Reason: Gas Sodium Chloride (Saline Flush) 2.5 ml FLUSH ASDIRECTED PRN PRN Reason: Keep Vein Open Discontinued Medications Bupivacaine HCl (Sensorcaine-Mpf 0.5%) Confirm Administered Dose 20 ml .ROUTE .STK-MED ONE Stop: 01/13/17 02:58 Last Admin: 01/13/17 09:23 Dose: Not Given Butorphanol Tartrate (Stadol) Confirm Administered Dose 1 mg .ROUTE .STK-MED ONE Stop: 01/12/17 15:46 Last Admin: 01/13/17 09:22 Dose: Not Given Butorphanol Tartrate (Stadol) 1 mg IVPUSH Q1H PRN PRN Reason: Pain Last Admin: 01/12/17 17:59 Dose: 1 mg Fentanyl (Sublimaze) Confirm Administered Dose 100 mcg .ROUTE .STK-MED ONE Stop: 01/12/17 20:01 Last Admin: 01/13/17 09:23 Dose: Not Given Fentanyl (Sublimaze) Confirm Administered Dose 100 mcg .ROUTE .STK-MED ONE Stop: 01/13/17 02:57 Last Admin: 01/13/17 09:23 Dose: Not Given Fentanyl (Sublimaze) Confirm Administered Dose 100 mcg .ROUTE .STK-MED ONE Stop: 01/13/17 03:25 Ampicillin Sodium 2 gm/ Sodium (Chloride) 100 mls @ 200 mls/hr IV ONETIME ONE Stop: 01/12/17 16:51 Last Admin: 01/12/17 16:50 Dose: 200 mls/hr Oxytocin/Lactated Ringer's (Pitocin In Lr 30 Units/500 Ml) 30 unit in 500 mls @ 250 mls/hr IV TITRATE [facility] PRN Reason: 250 MUNITS/MIN Stop: 01/12/17 18:29 Last Admin: 01/13/17 09:23 Dose: Not Given Ampicillin Sodium 1 gm/ Sodium (Chloride) 50 mls @ 100 mls/hr IV Q4H [facility] Last Admin: 01/13/17 00:48 Dose: 100 mls/hr Ropivacaine (Naropin 0.2%) Confirm Administered Dose 100 mls @ as directed .ROUTE .STK-MED ONE Stop: 01/12/17 20:01 Last Admin: 01/13/17 09:23 Dose: Not Given Cefazolin Sodium/Dextrose 2 gm (/ Premix) 50 mls @ 100 mls/hr IV ONETIME ONE Stop: 01/13/17 03:29 Last Admin: 01/13/17 09:23 Dose: Not Given Ibuprofen (Motrin) 800 mg PO Q8H PRN PRN Reason: mild pain or fever Ketorolac Tromethamine (Toradol) 30 mg IVPUSH Q6H [facility] Stop: 01/14/17 04:31 Last Admin: 01/14/17 04:25 Dose: 30 mg Lidocaine HCl (Xylocaine 1%) 50 ml INJECT .ONCE PRN PRN Reason: Laceration repair Meperidine HCl (Demerol) Confirm Administered Dose 25 mg .ROUTE .STK-MED ONE Stop: 01/13/17 04:03 Midazolam HCl (Versed 1 Mg/Ml) Confirm Administered Dose 2 mg .ROUTE .STK-MED ONE Stop: 01/13/17 03:48 Misoprostol (Cytotec) 200 mcg PO .ONCE PRN PRN Reason: Post Hemorrhage Morphine Sulfate (Duramorph Pf) Confirm Administered Dose 10 mg .ROUTE .STK-MED ONE Stop: 01/13/17 03:42 Nalbuphine HCl (Nubain) 10 mg IVPUSH Q1H PRN PRN Reason: Pain (severe 7-10) Stop: 01/12/17 18:23 Nalbuphine HCl (Nubain) 2.5 mg IVPUSH Q3H PRN PRN Reason: Pruritis Stop: 01/14/17 03:59 Last Admin: 01/13/17 10:26 Dose: 2.5 mg Naloxone HCl (Narcan) 0.1 mg IVPUSH ONETIME PRN PRN Reason: RR<6 WITH STIMULATION Stop: 01/14/17 04:00 Octyl Cyanoacrylate (Dermabond Advance) Confirm Administered Dose 1 applic .ROUTE .STK-MED ONE Stop: 01/13/17 04:10 Octyl Cyanoacrylate (Dermabond Advance) Confirm Administered Dose 1 applic .ROUTE .STK-MED ONE Stop: 01/13/17 04:15 Ondansetron HCl (Zofran) Confirm Administered Dose 4 mg .ROUTE .STK-MED ONE Stop: 01/13/17 04:05 Oxycodone/Acetaminophen (Percocet 325-5 Mg) 1 tab PO .Q4HRS PRN PRN Reason: Breakthrough Pain Stop: 01/14/17 04:00 Last Admin: 01/13/17 23:12 Dose: 1 tab Oxytocin (Pitocin) Confirm Administered Dose 20 unit .ROUTE .STK-MED ONE Stop: 01/13/17 03:14 Oxytocin (Pitocin) Confirm Administered Dose 20 unit .ROUTE .STK-MED ONE Stop: 01/13/17 04:13 Propofol (Diprivan 20 Ml) Confirm Administered Dose 200 mg .ROUTE .STK-MED ONE Stop: 01/13/17 03:34 Sodium Chloride (Saline Flush) 10 ml FLUSH ASDIRECTED PRN PRN Reason: Keep Vein Open Sodium Chloride (Saline Flush) 10 ml FLUSH ASDIRECTED PRN PRN Reason: Keep Vein Open Sodium Chloride (Saline Flush) 2.5 ml FLUSH ASDIRECTED PRN PRN Reason: Keep Vein Open Sterile Water (Sterile Water For Irrigation) 1,000 ml IRR ASDIRECTED PRN PRN Reason: delivery - Infant Interaction Infant Disposition, : [place] in Room with Family Infant Interaction: Holding Infant Feeding: Attempted ; Nursed Fair/Poor - Recovery Exam Fundal Tone: Firm Fundal Level: 1 Fingerbreadths Below Umbilicus Fundal Placement: Midline Lochia Amount: Scant Lochia Color: Rubra/Red Perineum Description: Intact, Minimal Bruising/Swelling Bladder Status: Voiding Urinary Elimination: Voided - Exam General: alert, oriented HEENT: Pupils equal Neck: supple Lungs: Clear to auscultation, Normal respiratory effort Cardiovascular: Regular Rate, Regular Rhythm. No: No Murmurs (2/6 ALKA left sternal border) Abdomen: bowel sounds present, soft, no tenderness, no distension Extremities: no edema Skin: warm, dry, intact Wound/Incisions: healing well Neurological: no new focal deficit Psy/Mental Status: alert, normal affect, normal mood - Problem List & Annotations (1) Arrest of descent, delivered, current hospitalization SNOMED Code(s): 37746796 Code(s): O62.1 - SECONDARY UTERINE INERTIA Status: Acute Current Visit: Yes (2) delivery delivered SNOMED Code(s): 328177933 Code(s): O82 - ENCOUNTER FOR DELIVERY WITHOUT INDICATION Status: Acute Current Visit: Yes - Problem List Review Problem List Initiated/Reviewed/Updated: Yes - Assessment Assessment:: POD#2 after arrest of dilatation , stable, minimal lochia, pain well controlled. Operative findings reviewed with patient. - Plan Plan:: Stable, baby is being observed in nursery, anticipate discharge tomorrow, discharge instructions reviewed.
[2017-01-15] MEDS: Docusate Sodium 100 MG Cap PO SCH ×2 (08:14→21:29)
[2017-01-16] MEDS: Ibuprofen 800 MG Tab PO PRN ×2 (02:27→11:57)
[2017-01-16] MEDS: Acetaminophen/oxyCODONE 325-5 MG Tab PO PRN ×2 (05:35→09:16)
[2017-01-16 09:40] VITALS: BP 134/91
--- NOTE | 2017-01-16 10:09 | PCM.PNPP ---
- General Info Date of Service: 01/16/17 Functional Status: Reports: pain controlled, tolerating diet, ambulating, urinating - Review of Systems General: Denies: Fever, Weakness Pulmonary: Denies: shortness of breath Cardiovascular: Denies: Chest Pain, Palpitations, Lightheadedness Gastrointestinal: Denies: Nausea, Vomiting Genitourinary: Denies: flank pain Musculoskeletal: Denies: no symptoms Neurological: Denies: Headache Psychiatric: Reports: no symptoms - General Info Date of Service: 01/16/17 - Patient Data Vital Signs - most recent: Last Vital Signs Temp 36.3 C 01/16/17 09:00 Pulse 79 01/16/17 09:00 Resp 16 01/16/17 09:00 BP 134/91 H 01/16/17 09:00 Pulse Ox 98 01/16/17 09:00 Weight - most recent: 88.904 kg Med Orders - Current: Current Medications Bisacodyl (Dulcolax) 10 mg RECTAL .ONCE PRN PRN Reason: Constipation Carboprost Tromethamine (Hemabate Ds) 250 mcg IM ASDIRECTED PRN PRN Reason: Post Hemorrhage Citric Acid/Sodium Citrate (Bicitra Solution) 30 ml PO .ONCE RODOLFO Diphenhydramine HCl (Benadryl) 25 mg IVPUSH Q6H PRN PRN Reason: Itching or Nausea Docusate Sodium (Colace) 100 mg PO BID [facility] Last Admin: 01/15/17 21:29 Dose: 100 mg Emollient Ointment (Lansinoh Hpa) 0 gm TOP ASDIRECTED PRN PRN Reason: Sore Nipples Last Admin: 01/16/17 06:35 Dose: 7 gm Lactated Ringer's (Ringers, Lactated) 1,000 mls @ 500 mls/hr IV .BOLUS [facility] Last Admin: 01/13/17 03:03 Dose: 1,000 mls/hr Lactated Ringer's (Ringers, Lactated) 1,000 mls @ 150 mls/hr IV ASDIRECTED [facility] Last Admin: 01/12/17 20:13 Dose: 999 mls/hr Lactated Ringer's (Ringers, Lactated) 1,000 mls @ 125 mls/hr IV ASDIRECTED [facility] Last Admin: 01/13/17 08:37 Dose: 125 mls/hr Ibuprofen (Motrin) 800 mg PO Q8H PRN PRN Reason: mild pain or fever Last Admin: 01/16/17 02:27 Dose: 800 mg Methylergonovine Maleate (Methergine) 0.2 mg IM ASDIRECTED PRN PRN Reason: Post Hemorrhage Ondansetron HCl (Zofran) 4 mg IVPUSH Q4H PRN PRN Reason: Nausea/Vomiting Oxycodone/Acetaminophen (Percocet 325-5 Mg) 1 tab PO Q4H PRN PRN Reason: Pain (moderate 4-6) Last Admin: 01/14/17 08:44 Dose: 1 tab Oxycodone/Acetaminophen (Percocet 325-5 Mg) 2 tab PO Q4H PRN PRN Reason: Pain (moderate 4-6) Last Admin: 01/16/17 09:16 Dose: 2 tab Simethicone (Simethicone) 80 mg PO Q4H PRN PRN Reason: Gas Sodium Chloride (Saline Flush) 2.5 ml FLUSH ASDIRECTED PRN PRN Reason: Keep Vein Open Discontinued Medications Bupivacaine HCl (Sensorcaine-Mpf 0.5%) Confirm Administered Dose 20 ml .ROUTE .STK-MED ONE Stop: 01/13/17 02:58 Last Admin: 01/13/17 09:23 Dose: Not Given Butorphanol Tartrate (Stadol) Confirm Administered Dose 1 mg .ROUTE .STK-MED ONE Stop: 01/12/17 15:46 Last Admin: 01/13/17 09:22 Dose: Not Given Butorphanol Tartrate (Stadol) 1 mg IVPUSH Q1H PRN PRN Reason: Pain Last Admin: 01/12/17 17:59 Dose: 1 mg Fentanyl (Sublimaze) Confirm Administered Dose 100 mcg .ROUTE .STK-MED ONE Stop: 01/12/17 20:01 Last Admin: 01/13/17 09:23 Dose: Not Given Fentanyl (Sublimaze) Confirm Administered Dose 100 mcg .ROUTE .STK-MED ONE Stop: 01/13/17 02:57 Last Admin: 01/13/17 09:23 Dose: Not Given Fentanyl (Sublimaze) Confirm Administered Dose 100 mcg .ROUTE .STK-MED ONE Stop: 01/13/17 03:25 Ampicillin Sodium 2 gm/ Sodium (Chloride) 100 mls @ 200 mls/hr IV ONETIME ONE Stop: 01/12/17 16:51 Last Admin: 01/12/17 16:50 Dose: 200 mls/hr Oxytocin/Lactated Ringer's (Pitocin In Lr 30 Units/500 Ml) 30 unit in 500 mls @ 250 mls/hr IV TITRATE [facility] PRN Reason: 250 MUNITS/MIN Stop: 01/12/17 18:29 Last Admin: 01/13/17 09:23 Dose: Not Given Ampicillin Sodium 1 gm/ Sodium (Chloride) 50 mls @ 100 mls/hr IV Q4H [facility] Last Admin: 01/13/17 00:48 Dose: 100 mls/hr Ropivacaine (Naropin 0.2%) Confirm Administered Dose 100 mls @ as directed .ROUTE .STK-MED ONE Stop: 01/12/17 20:01 Last Admin: 01/13/17 09:23 Dose: Not Given Cefazolin Sodium/Dextrose 2 gm (/ Premix) 50 mls @ 100 mls/hr IV ONETIME ONE Stop: 01/13/17 03:29 Last Admin: 01/13/17 09:23 Dose: Not Given Ibuprofen (Motrin) 800 mg PO Q8H PRN PRN Reason: mild pain or fever Ketorolac Tromethamine (Toradol) 30 mg IVPUSH Q6H [facility] Stop: 01/14/17 04:31 Last Admin: 01/14/17 04:25 Dose: 30 mg Lidocaine HCl (Xylocaine 1%) 50 ml INJECT .ONCE PRN PRN Reason: Laceration repair Meperidine HCl (Demerol) Confirm Administered Dose 25 mg .ROUTE .STK-MED ONE Stop: 01/13/17 04:03 Midazolam HCl (Versed 1 Mg/Ml) Confirm Administered Dose 2 mg .ROUTE .STK-MED ONE Stop: 01/13/17 03:48 Misoprostol (Cytotec) 200 mcg PO .ONCE PRN PRN Reason: Post Hemorrhage Morphine Sulfate (Duramorph Pf) Confirm Administered Dose 10 mg .ROUTE .STK-MED ONE Stop: 01/13/17 03:42 Nalbuphine HCl (Nubain) 10 mg IVPUSH Q1H PRN PRN Reason: Pain (severe 7-10) Stop: 01/12/17 18:23 Nalbuphine HCl (Nubain) 2.5 mg IVPUSH Q3H PRN PRN Reason: Pruritis Stop: 01/14/17 03:59 Last Admin: 01/13/17 10:26 Dose: 2.5 mg Naloxone HCl (Narcan) 0.1 mg IVPUSH ONETIME PRN PRN Reason: RR<6 WITH STIMULATION Stop: 01/14/17 04:00 Octyl Cyanoacrylate (Dermabond Advance) Confirm Administered Dose 1 applic .ROUTE .STK-MED ONE Stop: 01/13/17 04:10 Octyl Cyanoacrylate (Dermabond Advance) Confirm Administered Dose 1 applic .ROUTE .STK-MED ONE Stop: 01/13/17 04:15 Ondansetron HCl (Zofran) Confirm Administered Dose 4 mg .ROUTE .STK-MED ONE Stop: 01/13/17 04:05 Oxycodone/Acetaminophen (Percocet 325-5 Mg) 1 tab PO .Q4HRS PRN PRN Reason: Breakthrough Pain Stop: 01/14/17 04:00 Last Admin: 01/13/17 23:12 Dose: 1 tab Oxytocin (Pitocin) Confirm Administered Dose 20 unit .ROUTE .STK-MED ONE Stop: 01/13/17 03:14 Oxytocin (Pitocin) Confirm Administered Dose 20 unit .ROUTE .STK-MED ONE Stop: 01/13/17 04:13 Propofol (Diprivan 20 Ml) Confirm Administered Dose 200 mg .ROUTE .STK-MED ONE Stop: 01/13/17 03:34 Sodium Chloride (Saline Flush) 10 ml FLUSH ASDIRECTED PRN PRN Reason: Keep Vein Open Sodium Chloride (Saline Flush) 10 ml FLUSH ASDIRECTED PRN PRN Reason: Keep Vein Open Sodium Chloride (Saline Flush) 2.5 ml FLUSH ASDIRECTED PRN PRN Reason: Keep Vein Open Sterile Water (Sterile Water For Irrigation) 1,000 ml IRR ASDIRECTED PRN PRN Reason: delivery - Interaction Infant Disposition, : [place] in Room with Family Infant Interaction: Holding Infant Infant Feeding: Attempted ; Nursed Fair/Poor - Recovery Exam Fundal Tone: Firm Fundal Level: 1 Fingerbreadths Below Umbilicus Fundal Placement: Midline Lochia Amount: Scant Lochia Color: Rubra/Red Perineum Description: Intact, Minimal Bruising/Swelling Bladder Status: Voiding Urinary Elimination: Voided - Exam General: alert, oriented Lungs: Normal respiratory effort Cardiovascular: Regular Rate, Regular Rhythm Abdomen: bowel sounds present, soft. No: CVA tenderness Extremities: no calf tenderness, edema (1+pedal edema) Skin: warm, dry, intact Wound/Incisions: no drainage. No: erythema Psy/Mental Status: alert, normal affect - Problem List & Annotations (1) S/P repeat low transverse SNOMED Code(s): 221514945, 089563586, 986217514, 773168851 Code(s): Z98.891 - HISTORY OF UTERINE SCAR FROM PREVIOUS SURGERY Status: Acute Current Visit: Yes - Problem List Review Problem List Initiated/Reviewed/Updated: Yes - Assessment Assessment:: POD#3 after arrest of dilatation , - Plan Plan:: Discharge to home today. Discharge instructions reviewed. Infection and bleeding warnings reviewed. Follow up at [facility] 2 and 6 weeks.
[2017-01-16] MEDS ORDERED: Measles, Mumps & Rubella Vaccine 0.5 ML SDV SUBCUT ONE (12:00)
== END 2017-01-16 12:25 | disposition home or self-care (01) | DRG 765 ==
LOC: MW.OBCHECK 15:30 → MW.OB 15:34 → MW.OBCHECK 16:22 → MW.OB 16:22 → OBSVTOIN 01-13 03:32 → MW.OB 01-13 13:37
PROVIDERS: ADMIT Obstetrics & Gynecology; ATTEND Obstetrics & Gynecology
PROC: 10D00Z1 Extraction of Products of Conception, Low, Open Approach (ICD-10-PCS; principal; 2017-01-13)
PROC: 10907ZC Drainage of Amniotic Fluid, Therapeutic from Products of Conception, Via Natural or Artificial Opening (ICD-10-PCS; 2017-01-13)
DX: O62.1 Secondary uterine inertia (principal); O98.52 Other viral diseases complicating childbirth; B00.9 Herpesviral infection, unspecified; O99.344 Other mental disorders complicating childbirth; Z3A.40 40 weeks gestation of pregnancy; Z37.0 Single live birth; Z22.330 Carrier of Group B streptococcus
CPT/HCPCS: 01967; 01968; 36415; 51703; 85014; 85018; 85027; 86850; 86900; 86901; 90707; A9270-GY; J0290; J0595; J0690; J1885; J2175; J2250; J2270; J2300; J2405; J2590; J2704; J3010; J7030; J7050; J7120